=== PATIENT | male | born 1965 | race Caucasian/White ===

== ENCOUNTER 2023-10-30 09:47 | Day surgery (SDC) | payer MEDICARE ==
[2023-10-30] MEDS ORDERED: BETADINE 5% OPHTHALMIC 30 ML OP ONE (10:00)
[2023-10-30] MEDS ORDERED: NON-FORMULARY ITEM OP ONE (10:00)
[2023-10-30] MEDS ORDERED: cefUROXime sodium 0.005 GM in Sodium Chloride Flush 30 ML*** 0.5 ML IJ ONE (10:00)
[2023-10-30] MEDS ORDERED: Lactated Ringers 1,000 ML IV ONE ×2 (11:11→14:40)
[2023-10-30] MEDS: Lactated Ringers 1,000 ML IV SCH (11:13)
[2023-10-30] MEDS: TETRACAINE 0.5% STERI-UNIT SOL OP ONE ×2 (11:16→12:00)
[2023-10-30] MEDS: Ak-Dilate OPHTHALMIC*** 1.065 ML, TROPICAMIDE 1.065 ML, GATIFLOXACIN 0.5% OPHTH DROPS 0... OP ONE (11:29)
[2023-10-30 11:45] VITALS: RESP 18
[2023-10-30] MEDS ORDERED: Epinephrine Preservative Free 1 MG/ML IJ ONE (12:00)
[2023-10-30] MEDS ORDERED: Zofran 4 MG/2 ML VIAL IV PRN (12:30)
[2023-10-30] MEDS ORDERED: DIPRIVAN 200 MG/20 ML IV ONE ×2 (14:21→14:33)
[2023-10-30] MEDS ORDERED: SUBLIMAZE 100 MCG/2 ML ONE (14:27)
[2023-10-30] MEDS: ACETAZOLAMIDE 250 MG TABLET PO ONE (15:37)
[2023-10-30 15:42] VITALS: O2SAT 94
[2023-10-30 16:28] VITALS: BP 120/73; PULSE 62; TEMP 98
== END 2023-10-30 15:52 | disposition home or self-care (01) ==
LOC: SDC 09:47
PROVIDERS: ATTEND Ophthalmology
DX: H25.812 Combined forms of age-related cataract, left eye (principal)
CPT/HCPCS: J0171; J2704; J3010; A9270-GY

== ENCOUNTER 2023-11-30 08:46 | Day surgery (SDC) | payer MEDICARE ==
[~2023-11-30 08:46] MED LIST: BETADINE 5% OPHTHALMIC 30 ML OP ONE; NON-FORMULARY ITEM OP ONE; cefUROXime sodium 0.005 GM in Sodium Chloride Flush 30 ML*** 0.5 ML IJ ONE
[2023-11-30] MEDS ORDERED: Zofran 4 MG/2 ML VIAL IV PRN (10:30)
[2023-11-30] MEDS ORDERED: Lactated Ringers 1,000 ML IV ONE ×2 (10:40→13:30)
[2023-11-30] MEDS: Lactated Ringers 1,000 ML IV SCH (10:45)
[2023-11-30 10:46] VITALS: RESP 16
[2023-11-30] MEDS: TETRACAINE 0.5% STERI-UNIT SOL OP ONE ×2 (11:12→11:48)
[2023-11-30 11:35] LABS: ANION GAP 9.7 MEQ/L (5-15); Calcium 9.3 mg/dL (8.4-10.2); Creatinine 1 1.05 mg/dL (0.66-1.25); EST GLOMERULAR FILTRATION RATE 81.8 ML/MIN
[2023-11-30] MEDS ORDERED: SUBLIMAZE 100 MCG/2 ML ONE (13:33)
[2023-11-30] MEDS ORDERED: DIPRIVAN 200 MG/20 ML IV ONE (13:47)
[2023-11-30] MEDS ORDERED: ROBINUL ONE (13:47)
[2023-11-30] MEDS ORDERED: Epinephrine Preservative Free 1 MG/ML IJ ONE (14:00)
[2023-11-30] MEDS: ACETAZOLAMIDE 250 MG TABLET PO ONE (14:22)
[2023-11-30 14:25] VITALS: TEMP 96.8
[2023-11-30 14:29] VITALS: BP 150/70; PULSE 74; O2SAT 95
[2023-11-30] MEDS: Ak-Dilate OPHTHALMIC*** 1.065 ML, Cyclogyl 1% OPHTH SOL 1.065 ML, GATIFLOXACIN 0.5% OPH... OP ONE (15:26)
== END 2023-11-30 14:36 | disposition home or self-care (01) ==
LOC: SDC 08:46
PROVIDERS: ATTEND Ophthalmology
DX: H25.811 Combined forms of age-related cataract, right eye (principal)
CPT/HCPCS: 36415; 80048; 93005; C1780; J0171; J2704; J3010; A9270-GY